=== PATIENT | female | born 1985 | race Caucasian/White ===

== ENCOUNTER 2016-07-03 11:13 | Observation (INO) | payer OTHER ==
[~2016-07-03] VITALS: Ht 162.6 cm; Wt 121.1 kg
[2016-07-03] MEDS ORDERED: PREN-546 PO (11:33)
== END 2016-07-03 14:28 | disposition home or self-care (01) ==
LOC: MLD 11:13
PROVIDERS: ADMIT Obstetrics & Gynecology; ATTEND Obstetrics & Gynecology
DX: O36.8190 Decreased fetal movements, unspecified trimester, not applicable or unspecified (principal); Z3A.00 Weeks of gestation of pregnancy not specified
CPT/HCPCS: 76819; G0378; Q0092

== ENCOUNTER 2016-07-29 10:23 | Observation (INO) | payer OTHER ==
[~2016-07-29 10:23] MED LIST: PREN-546 PO
[2016-07-29 11:45] VITALS: BP 107/59
[2016-07-29] MEDS ORDERED: HUM SUBQ (12:12)
== END 2016-07-29 12:30 | disposition home or self-care (01) ==
LOC: MLD 10:23
PROVIDERS: ADMIT Obstetrics & Gynecology; ATTEND Obstetrics & Gynecology
DX: O24.419 Gestational diabetes mellitus in pregnancy, unspecified control (principal); Z3A.35 35 weeks gestation of pregnancy
CPT/HCPCS: 59025; 76805; G0378

== ENCOUNTER 2016-08-05 11:28 | Observation (INO) | payer OTHER ==
[~2016-08-05] VITALS: Ht 162.6 cm; Wt 122.5 kg
[~2016-08-05 11:28] MED LIST changes: +HUMALOG100 UNITS/ SUBQ; +MOTRIN800 MG PO; -PREN-546 PO; +PRENATAL VITAMI1 T10 PO; +PRENATAL VITAMI1 TA2 PO
[2016-08-28] MEDS ORDERED: PRENATAL VITAMI1 TA2 PO (06:21)
[2016-08-28] MEDS ORDERED: RELION HUMUL100 U/ML SC (06:21)
[2016-08-30] MEDS ORDERED: IBU800 M1 PO (09:05)
== END 2016-08-05 13:36 | disposition home or self-care (01) ==
LOC: MLD 11:28
PROVIDERS: ADMIT Obstetrics & Gynecology; ATTEND Obstetrics & Gynecology
DX: Z34.93 Encounter for supervision of normal pregnancy, unspecified, third trimester (principal); Z3A.35 35 weeks gestation of pregnancy
CPT/HCPCS: 76819; G0378

== ENCOUNTER 2016-08-12 12:26 | Observation (INO) | payer OTHER ==
[~2016-08-12] VITALS: Ht 162.6 cm; Wt 122.5 kg
[2016-08-28] MEDS ORDERED: RELION HUMUL100 U/ML SC (06:21)
[2016-08-28] MEDS ORDERED: PRENATAL VITAMI1 TA2 PO (06:21)
[2016-08-30] MEDS ORDERED: IBU800 M1 PO (09:05)
== END 2016-08-12 16:00 | disposition home or self-care (01) ==
LOC: MLD 12:26
PROVIDERS: ADMIT Obstetrics & Gynecology; ATTEND Obstetrics & Gynecology
DX: O62.9 Abnormality of forces of labor, unspecified (principal); O24.419 Gestational diabetes mellitus in pregnancy, unspecified control; Z3A.00 Weeks of gestation of pregnancy not specified
CPT/HCPCS: 59025; 76819; 81000; G0378; Q0092

== ENCOUNTER 2016-08-14 10:40 | Observation (INO) | payer OTHER ==
[~2016-08-14 10:40] MED LIST changes: +HUM SUBQ; -HUMALOG100 UNITS/ SUBQ; -MOTRIN800 MG PO; +PREN-546 PO; -PRENATAL VITAMI1 T10 PO; -PRENATAL VITAMI1 TA2 PO
[2016-08-14 11:00] VITALS: BP 109/61
== END 2016-08-14 13:20 | disposition home or self-care (01) ==
LOC: MLD 10:40
PROVIDERS: ADMIT Obstetrics & Gynecology; ATTEND Obstetrics & Gynecology
DX: O26.899 Other specified pregnancy related conditions, unspecified trimester (principal); R10.9 Unspecified abdominal pain; Z3A.00 Weeks of gestation of pregnancy not specified
CPT/HCPCS: 59025; 76819; 81000; 99285; G0378; Q0092

== ENCOUNTER 2016-08-16 10:36 | Observation (INO) | payer OTHER ==
[~2016-08-16] VITALS: Ht 162.6 cm; Wt 127.0 kg
[2016-08-16 12:58] VITALS: BP 123/61
[2016-08-16 13:29] VITALS: BP 123/61
== END 2016-08-16 13:50 | disposition home or self-care (01) ==
LOC: MLD 10:36
PROVIDERS: ADMIT Obstetrics & Gynecology; ATTEND Obstetrics & Gynecology
DX: O26.899 Other specified pregnancy related conditions, unspecified trimester (principal); R10.9 Unspecified abdominal pain; Z3A.00 Weeks of gestation of pregnancy not specified
CPT/HCPCS: 59025; 76815; 81000; G0378; Q0092

== ENCOUNTER 2016-08-21 10:14 | Observation (INO) | payer OTHER ==
[~2016-08-21] VITALS: Ht 162.6 cm; Wt 127.0 kg
[~2016-08-21 10:14] MED LIST changes: -HUM SUBQ; +HUMALOG100 UNITS/ SUBQ; +MOTRIN800 MG PO; -PREN-546 PO; +PRENATAL VITAMI1 T10 PO; +PRENATAL VITAMI1 TA2 PO
[2016-08-21 10:42] VITALS: BP 114/58
[2016-08-28] MEDS ORDERED: PRENATAL VITAMI1 TA2 PO (06:21)
[2016-08-28] MEDS ORDERED: RELION HUMUL100 U/ML SC (06:21)
[2016-08-30] MEDS ORDERED: IBU800 M1 PO (09:05)
== END 2016-08-21 12:20 | disposition home or self-care (01) ==
LOC: MLD 10:14
PROVIDERS: ADMIT Obstetrics & Gynecology; ATTEND Obstetrics & Gynecology
DX: O26.899 Other specified pregnancy related conditions, unspecified trimester (principal); R10.9 Unspecified abdominal pain; Z3A.00 Weeks of gestation of pregnancy not specified
CPT/HCPCS: 59025; 76819; 81000; G0378; Q0092

== ENCOUNTER 2016-08-26 10:13 | Observation (INO) | payer OTHER ==
[~2016-08-26] VITALS: Ht 162.6 cm; Wt 127.0 kg
[2016-08-28] MEDS ORDERED: PRENATAL VITAMI1 TA2 PO (06:21)
[2016-08-28] MEDS ORDERED: RELION HUMUL100 U/ML SC (06:21)
[2016-08-30] MEDS ORDERED: IBU800 M1 PO (09:05)
== END 2016-08-26 12:14 | disposition home or self-care (01) ==
LOC: MLD 10:13
PROVIDERS: ADMIT Obstetrics & Gynecology; ATTEND Obstetrics & Gynecology
DX: O26.893 Other specified pregnancy related conditions, third trimester (principal); R11.0 Nausea; O36.8130 Decreased fetal movements, third trimester, not applicable or unspecified; Z3A.38 38 weeks gestation of pregnancy
CPT/HCPCS: 59025; 76819; G0378; Q0092

== ENCOUNTER 2016-08-28 05:01 | Inpatient (IN) | payer OTHER ==
[~2016-08-28] VITALS: Ht 162.6 cm; Wt 127.0 kg
[~2016-08-28 05:01] MED LIST changes: +HUM SUBQ; -HUMALOG100 UNITS/ SUBQ; -MOTRIN800 MG PO; +PREN-546 PO; -PRENATAL VITAMI1 T10 PO; -PRENATAL VITAMI1 TA2 PO
[2016-08-28] MEDS ORDERED: PREN-546 PO (06:21)
[2016-08-28] MEDS ORDERED: INSU100S10 SC (06:21)
[2016-08-28] MEDS ORDERED: LACTATED RINGERS 1,000 ML IV SCH (06:22)
[2016-08-28] MEDS ORDERED: IBUPROFEN 800 MG TAB PO PRN ×2 (06:25→08:10)
[2016-08-28 06:34] LABS: HEMATOCRIT 35.2 % (36-48); HEMOGLOBIN 11.8 g/dL (12.0-16.0); MEAN CORPUSCULAR HEMOGLOBIN 30 pg (27-31); MEAN CORPUSCULAR HGB CONC 33 g/dL (33-37); MEAN CORPUSCULAR VOLUME 90 fL (80-94); PLATELET COUNT (AUTO) 203 K/uL (140-450); RED BLOOD CELL COUNT(AUTO) 3.93 MIL/uL (4.20-5.40); RED CELL DISTRIBUTION WIDTH 13.9 % (11.6-13.7); WHITE BLOOD COUNT (AUTO) 15.4 K/uL (4.8-10.8)
[2016-08-28 06:36] VITALS: BP 124/60
[2016-08-28 06:44] LABS: ANION GAP 15.8 (8-16); CALCIUM 8.8 mg/dL (8.5-10.1); CARBON DIOXIDE 23.9 mmol/L (21-32); CREATININE 0.5 mg/dL (0.6-1.3); POTASSIUM 3.7 mmol/L (3.5-5.1)
[2016-08-28 06:50] LABS: ALBUMIN 2.8 g/dL (3.4-5.0); TOTAL BILIRUBIN 0.3 mg/dL (0.0-1.0); TOTAL PROTEIN, SERUM 7.1 g/dL (6.4-8.2)
[2016-08-28 07:06] LABS: BAND % (MANUAL) 6 % (0-8); LYMPHOCYTES % (MANUAL) 11 % (20-46); NEUTROPHILS % (MANUAL) 78 (43-65)
[2016-08-28 07:07] LABS: MONOCYTES % (MANUAL) 5 % (5-12); PLATELET ESTIMATE ADEQUATE
[2016-08-28] MEDS ORDERED: BUPIVACAINE-MPF 0.75% 10 ML VIAL INJ ONE (07:15)
[2016-08-28 07:23] LABS: APPEARANCE,URINE CLEAR (CLEAR); BILIRUBIN,URINE NEGATIVE (NEGATIVE); BLOOD, URINE 2+ (NEGATIVE); COLOR,URINE YELLOW (YELLOW); LEUKOCYTE ESTERASE ,URINE 1+ (NEGATIVE); NITRITE, URINE NEGATIVE (NEGATIVE); PH,URINE 6.5 (5.0-9.0); PROTEIN,URINE NEGATIVE (NEGATIVE); UGLUCOSE NEGATIVE (NEGATIVE); UROBILINOGEN,URINE 0.2 EU/dL (0.2 - 1)
[2016-08-28] MEDS ORDERED: MIDAZOLAM 2 MG/2 ML VIAL ONE (07:24)
[2016-08-28] MEDS ORDERED: MORPHINE PRES FREE 10 MG/10 ML AMP IV ONE (07:24)
[2016-08-28] MEDS ORDERED: ceFAZolin 1,000 MG VIAL IVP ONE (07:33)
[2016-08-28] MEDS ORDERED: OXYTOCIN 20 UNITS/LR PREMIX 1,000 ML IV SCH (08:03)
[2016-08-28] MEDS ORDERED: HYDROmorphone 1 MG/ML AMP IVP PRN (08:05)
[2016-08-28] MEDS ORDERED: ONDANSETRON 4 MG/2 ML VIAL IVP PRN (08:05)
[2016-08-28] MEDS ORDERED: NALOXONE 0.4 MG/ML VIAL IVP PRN ×3 (08:05)
[2016-08-28] MEDS ORDERED: NALBUPHINE 10 MG/ML AMP IVP PRN (08:05)
[2016-08-28] MEDS ORDERED: BLOOD GLUCOSE MONITORING 1 DEV DEV FS SCH (08:05)
[2016-08-28] MEDS ORDERED: diphenhydrAMINE 50 MG/ML VIAL IVP PRN ×2 (08:05)
[2016-08-28] MEDS ORDERED: MEPERIDINE 25 MG/ML SYR IVP PRN (08:05)
[2016-08-28] MEDS ORDERED: METHYLERGONOVINE 0.2 MG/ML AMP IM PRN (08:10)
[2016-08-28] MEDS ORDERED: MEASLES, MUMPS, AND RUBELLA 1 VIAL SQVAC PRN (08:10)
[2016-08-28] MEDS ORDERED: TRIMETHOBENZAMIDE 200 MG/2 ML SYR IM PRN (08:10)
[2016-08-28] MEDS ORDERED: TEMAZEPAM 15 MG CAP PO PRN (08:10)
[2016-08-28] MEDS ORDERED: diphenhydrAMINE 50 MG/ML VIAL ONE (08:18)
[2016-08-28] MEDS ORDERED: OXYTOCIN 20 UNITS/LR PREMIX 1,000 ML IV ONE (08:18)
[2016-08-28] MEDS ORDERED: ONDANSETRON 4 MG/2 ML VIAL ONE (08:47)
[2016-08-28 08:48] LABS: RBC,URINE 0-5 (RARE) /HPF (0-5)
[2016-08-28 08:49] LABS: BACTERIA,URINE None Seen /HPF (None Seen); SQUAMOUS EPITHELIAL CELL,UR None Seen /LPF (0-3 (FEW)); WBC,URINE 0-5 (RARE) /HPF (0-5)
--- NOTE | 2016-08-28 10:26 | NUR ---
PATIENT HAS BEEN SCREENED AND CATEGORIZED LOW NUTRITION RISK. PATIENT WILL BE SEEN WITHIN 7 DAYS OF ADMISSION. 09/03/[address]
[2016-08-28] MEDS: KETOROLAC 30 MG/ML VIAL IM/IVP SCH ×3 (12:04→23:42)
[2016-08-28] MEDS: ONDANSETRON 4 MG/2 ML VIAL IVP PRN ×2 (14:14→19:49)
[2016-08-28] MEDS: OXYTOCIN 20 UNITS/LR PREMIX 1,000 ML IV SCH ×2 (16:30→23:38)
[2016-08-28] MEDS: DOCUSATE SOD/SENNA 50/8.6 MG 1 TAB PO SCH (21:00)
[2016-08-29 06:28] LABS: BASOPHILS % (AUTO) 0.3 % (0.0-2.0); EOSINOPHILS # (AUTO) 0.2 K/uL (0-0.4); EOSINOPHILS % (AUTO) 1.3 % (0.0-4.0); HEMATOCRIT 28.8 % (36-48); HEMOGLOBIN 9.6 g/dL (12.0-16.0); LYMPHOCYTES # (AUTO) 1.6 K/uL (2.5-16.5); LYMPHOCYTES % (AUTO) 10.5 % (20.5-51.1); MEAN CORPUSCULAR HEMOGLOBIN 30 pg (27-31); MEAN CORPUSCULAR HGB CONC 33 g/dL (33-37); MEAN CORPUSCULAR VOLUME 91 fL (80-94); MONOCYTES % (AUTO) 6.7 % (1.7-9.3); NEUTROPHILS # (AUTO) 12.4 K/uL (1.8-7.7); NEUTROPHILS % (AUTO) 81.2 % (42.2-75.2); PLATELET COUNT (AUTO) 189 K/uL (140-450); RED BLOOD CELL COUNT(AUTO) 3.17 MIL/uL (4.20-5.40); RED CELL DISTRIBUTION WIDTH 13.8 % (11.6-13.7); WHITE BLOOD COUNT (AUTO) 15.2 K/uL (4.8-10.8)
[2016-08-29] MEDS: SIMETHICONE 80 MG TAB.CHEW PO PRN ×3 (08:16→18:15)
[2016-08-29] MEDS: oxyCODONE/APAP 5/325 MG 1 TAB TAB PO PRN ×3 (08:17→18:15)
[2016-08-29] MEDS: DOCUSATE SOD/SENNA 50/8.6 MG 1 TAB PO SCH (20:11)
[2016-08-30] MEDS: HYDROcodone/APAP 5/325 MG 1 TAB TAB PO PRN ×2 (06:30→10:56)
[2016-08-30] MEDS ORDERED: IBUP800T99 PO (09:05)
[2016-08-30] MEDS ORDERED: SODIUM PHOSPHATE 118 ML ENEM RC PRN (11:15)
== END 2016-08-30 14:10 | disposition home or self-care (01) | DRG 540 ==
LOC: MLD 05:01 → MFCC 09:51
PROVIDERS: ADMIT Obstetrics & Gynecology; ATTEND Obstetrics & Gynecology
PROC: 0UB70ZZ Excision of Bilateral Fallopian Tubes, Open Approach (ICD-10-PCS; 2016-08-28)
PROC: 30233S1 Transfusion of Nonautologous Globulin into Peripheral Vein, Percutaneous Approach (ICD-10-PCS; 2016-08-28)
PROC: 3E0234Z Introduction of Serum, Toxoid and Vaccine into Muscle, Percutaneous Approach (ICD-10-PCS; 2016-08-28)
PROC: 10D00Z1 Extraction of Products of Conception, Low, Open Approach (ICD-10-PCS; principal; 2016-08-28 07:30)
DX: O34.211 Maternal care for low transverse scar from previous cesarean delivery (principal); O99.354 Diseases of the nervous system complicating childbirth; O24.424 Gestational diabetes mellitus in childbirth, insulin controlled; G35 Multiple sclerosis; O99.214 Obesity complicating childbirth; E66.9 Obesity, unspecified; Z3A.39 39 weeks gestation of pregnancy; Z37.0 Single live birth; O09.43 Supervision of pregnancy with grand multiparity, third trimester; Z30.2 Encounter for sterilization; Z23 Encounter for immunization; Z68.42 Body mass index [BMI] 45.0-49.9, adult; Z79.4 Long term (current) use of insulin
CPT/HCPCS: 36415; 51702; 80053; 81001; 82948; 85025; 86592; 86850; 86886; 86900; 86901; 87081; 87086; 90715; J0690; J1200; J1885; J2250; J2270; J2405; J2590; J2790; J3490; J7060